=== PATIENT | male | born 1950 | race Caucasian/White ===

== ENCOUNTER 2016-08-08 16:58 | Inpatient (IN) | payer OTHER ==
[2016-08-08] MEDS ORDERED: SALINE LOCK IV FLUID XX ONE (17:10)
[2016-08-08] MEDS ORDERED: LEVAQUIN 500 MG/D5W 100 ML IV SCH (17:15)
[2016-08-08] MEDS: ALBUTEROL NEB INH SCH (20:00)
[2016-08-08] MEDS: LOVENOX SUBQ SCH (21:31)
[2016-08-08] MEDS: FLEXERIL PO SCH (21:31)
[2016-08-08] MEDS: PRAVACHOL PO SCH (21:32)
[2016-08-08] MEDS: GLUCOPHAGE XR PO SCH (21:32)
[2016-08-08] MEDS: COREG PO SCH (21:32)
[2016-08-08] MEDS: SOLU-MEDROL IV SCH (21:55)
[2016-08-08] MEDS: DOXYCYCLINE PO SCH (21:56)
[2016-08-08] MEDS: ROCEPHIN 1 GM/NS 50 ML IV SCH (21:56)
[2016-08-09] MEDS: ALBUTEROL NEB INH SCH ×4 (03:18→19:33)
[2016-08-09] MEDS: SOLU-MEDROL IV SCH ×3 (04:46→20:03)
[2016-08-09 05:01] LABS: ALLEN TEST YES; BLOOD TYPE ARTERIAL; DRAW SITE R RADIAL; METHB 1.4 % (0.0-1.5); O2(CT) 22.9 mL/dL (15.0-23.0); PO2(98.6) 63 mmHg (60-100); SAMPLE BLOOD; SAO2 93.3 % (95.0-100.0); THB 19.4 g/dL (11.5-17.4); pH(98.6) 7.31 (7.35-7.45)
[2016-08-09 05:09] LABS: PCO2(98.6) 80 mmHg (35-45)
[2016-08-09 05:10] LABS: MODALITY CANNULA
[2016-08-09 05:41] LABS: MANUAL DIFF NEEDED? NO
[2016-08-09 05:46] LABS: BASO% 0.3 % (0.0-0.8); HEMATOCRIT 58.5 % (42.0-52.0); HEMOGLOBIN 18.8 g/dL (14.0-18.0); IMM GRAN# 0.04 X1000 (0.0-0.04); IMM GRAN% 0.7 % (0.0-0.5); LYMPH# 0.79 X1000 (1.2-3.4); MCH 31.9 PG (27-31); MCHC 32.1 g/dL (33-37); MCV 99.3 FL (81-99); MONO# 0.07 X1000 (0.11-0.59); MONO% 1.2 % (1.7-9.3); MPV 9.3 FL (7.4-10.4); NEUT% 84.8 % (42.2-75.2); PLT 192 X1000 (130-400); RBC 5.89 XMIL (4.7-6.1)
[2016-08-09 08:20] LABS: AGAP 9; BUN 23 mg/dL (8-22); CALCIUM 8.8 mg/dL (8.8-10.2); CHLORIDE 90 mmol/L (98-107); COSMO 281; POTASSIUM 4.8 mmol/L (3.5-5.1); SODIUM 137 mmol/L (136-145); TCO2 38 mmol/L (25-35)
[2016-08-09] MEDS: COREG PO SCH ×2 (09:35→20:04)
[2016-08-09] MEDS: ZYLOPRIM PO SCH (09:35)
[2016-08-09] MEDS: NORVASC PO SCH (09:35)
[2016-08-09] MEDS: ULORIC PO SCH (09:36)
[2016-08-09] MEDS: DOXYCYCLINE PO SCH ×2 (09:36→20:03)
[2016-08-09] MEDS: CHANTIX PO SCH (09:37)
[2016-08-09] MEDS: GLUCOPHAGE XR PO SCH ×3 (09:47→20:03)
[2016-08-09] MEDS: ROCEPHIN 1 GM/NS 50 ML IV SCH (18:34)
[2016-08-09] MEDS: LOVENOX SUBQ SCH (20:03)
[2016-08-09] MEDS: FLEXERIL PO SCH (20:03)
[2016-08-09] MEDS: PRAVACHOL PO SCH (20:04)
--- NOTE | 2016-08-09 21:10 | CONSULTATION ---
DATE OF CONSULTATION: 08/09/2016 REQUESTING PHYSICIAN: Jose D Sotelo MD. REASON FOR CONSULTATION: Respiratory failure. HISTORY OF PRESENT ILLNESS: Mr. Thomas is a 65-year-old white male with a greater than 100 pack year history for tobacco, ongoing tobacco use, COPD, prior strokes, and obstructive sleep apnea who has had increasing difficulty with cough, wheezing and shortness of breath over the last week. Cough is productive of white sputum. He reports his dyspnea was so severe he could not walk across the room. He underwent a chest x-ray on 08/03 which revealed no evidence of acute disease. He was evaluated by Dr. Sotelo on 08/08/2016 and was admitted to the hospital with an acute exacerbation of COPD. PAST MEDICAL HISTORY: 1. COPD with ongoing tobacco use. 2. History of "two strokes" four years ago. 3. Diabetes mellitus. 4. Dyslipidemia. 5. Sleep apnea on CPAP machine. 6. Hypertension. SOCIAL HISTORY: Occasional alcohol use. Ongoing tobacco use. FAMILY HISTORY: Positive for hypertension and coronary artery disease. REVIEW OF SYSTEMS: As noted in the HPI, but is otherwise negative. PHYSICAL EXAMINATION: General: Reveals an obese white male who has the classic blue bloater appearance of a patient with COPD. Vital signs: Blood pressure 121/50, heart rate 77, respiration rate 22, oxygen saturation 95% on supplemental oxygen. HEENT: Pupils are equal reactive. Oropharynx is clear. Neck: Supple. Chest: Reveals scattered wheezing and rhonchi throughout all lung parekh. Cardiac: Distant heart sounds. Normal S1, normal S2. Abdomen: Obese and soft. Extremities: Reveal mild cyanosis. LABORATORIES/X-RAY: Chest x-ray 08/03/2016 reveals COPD, but no acute changes. Arterial blood gas this morning at 4:50 reveals a pH of 7.31, pCO2 of 80, PO2 of 63, with a carboxyhemoglobin of 8.3. White blood count 6.08. Hemoglobin 18.8. Hematocrit 58.5. Chemistries: Sodium 137, potassium 4.8, chloride 90, bicarbonate 38, BUN 23, creatinine 1. IMPRESSION: A 65-year-old with chronic obstructive pulmonary disease exacerbation, acute hypercapnic respiratory failure, chronic hypoxemic respiratory failure, secondary polycythemia, obstructive sleep apnea, ongoing tobacco use, and a coarse voice. RECOMMENDATIONS: 1. Agree with treatment of chronic obstructive pulmonary disease exacerbation as you are doing which includes bronchodilators, steroids, and antibiotics. 2. Smoking cessation was discussed at length. He has had difficulty with Chantix in the past. Other alternatives would include nicotine replacement therapy and perhaps hypnosis. 3. Recommend phlebotomy to bring hematocrit less than 50. 4. Recommend referral for an outpatient evaluation of his vocal cords given his coarse voice. 5. Long-term, weight loss would be of benefit. 6. Continue CPAP for sleep apnea. 7. Additional recommendations pending hospital course.
[2016-08-10] MEDS: ALBUTEROL NEB INH SCH ×4 (04:11→19:29)
[2016-08-10] MEDS: SOLU-MEDROL IV SCH (05:33)
[2016-08-10 06:14] LABS: HDL 17 mg/dL (35-55); LDL 50 mg/dL; TRIGLYCERIDES 198 mg/dL (39-160); VLDL 40 mg/dL
[2016-08-10 06:29] LABS: FREE T4 0.97 ng/dL (0.93-1.70)
[2016-08-10] MEDS: NORVASC PO SCH (09:33)
[2016-08-10] MEDS: COREG PO SCH ×2 (09:33→22:17)
[2016-08-10] MEDS: ZYLOPRIM PO SCH (09:33)
[2016-08-10] MEDS: DOXYCYCLINE PO SCH ×2 (09:33→22:17)
[2016-08-10] MEDS: CHANTIX PO SCH (09:33)
[2016-08-10] MEDS: ULORIC PO SCH (09:34)
[2016-08-10] MEDS: GLUCOPHAGE XR PO SCH ×2 (09:34→22:16)
[2016-08-10] MEDS: PREDNISONE PO SCH (15:09)
[2016-08-10] MEDS: ROCEPHIN 1 GM/NS 50 ML IV SCH (18:38)
[2016-08-10] MEDS: FLEXERIL PO SCH (22:16)
[2016-08-10] MEDS: PRAVACHOL PO SCH (22:17)
[2016-08-10] MEDS: LOVENOX SUBQ SCH (22:17)
[2016-08-11] MEDS: ALBUTEROL NEB INH SCH ×2 (04:05→08:01)
[2016-08-11] MEDS: PREDNISONE PO SCH ×2 (06:40→13:35)
[2016-08-11 09:34] VITALS: BP 123/59
[2016-08-11] MEDS: NORVASC PO SCH (09:38)
[2016-08-11] MEDS: ZYLOPRIM PO SCH (09:39)
[2016-08-11] MEDS: COREG PO SCH (09:39)
[2016-08-11] MEDS: ULORIC PO SCH (09:39)
[2016-08-11] MEDS: DOXYCYCLINE PO SCH (09:39)
[2016-08-11] MEDS: CHANTIX PO SCH (09:39)
[2016-08-11] MEDS: GLUCOPHAGE XR PO SCH (09:39)
--- NOTE | 2016-08-12 09:30 | DISCHARGE SUMMARY ---
ADMISSION DATE: 08/08/2016 DISCHARGE DATE: 08/11/2016 FINAL DIAGNOSES: 1. Acute exacerbation of chronic obstructive pulmonary disease. 2. Chronic hypercapnic respiratory failure with impending acute respiratory failure. 3. Chronic hypoxemic respiratory failure. 4. Secondary polycythemia. 5. Obstructive sleep apnea. 6. Ongoing tobacco use. 7. Persistent hoarseness. 8. Type 2 diabetes mellitus. 9. Dyslipidemia. 10. Essential hypertension. 11. Cerebrovascular disease with history of previous strokes. 12. Abnormal thyroid function tests. PRESENT ILLNESS: Mr. Thomas is a 65-year-old, disabled white male with greater than 100 pack year history of tobacco use, who presented to his nurse practitioner on followup with failure to improve on outpatient management with exacerbation of COPD. He was visibly cyanotic with O2 saturation in the low 80s. He had also been only partially compliant, and not filled the prescription for nebulizer treatments. PHYSICAL EXAMINATION: General: Revealed an obese gentleman with fairly unremarkable vital signs. O2 saturation was 90-92% on 2 L of nasal oxygen. Neck: Supple but quite short and dunne. Chest exam: Revealed very distant breath sounds with scattered, soft wheezing and rhonchi in all lung parekh. Heart: Sounds were distant, but no murmurs were heard. Abdomen: Obese, soft, and nontender. Extremities: Mild cyanosis. Please see Susy Snyder's excellent EHR note for further details. DATABASE: Chemistry profile remarkable for CO2 of 38. BUN 23, creatinine 1.0, glucose 155. White blood count was 6000. Hemoglobin 18.8, hematocrit 58.5%. Blood gas: pH 7.31, pCO2 of 80, pO2 of 63 on 2 L of nasal cannula. Carboxyhemoglobin was 8.3. HOSPITAL COURSE: He was treated with low-flow nasal O2, limited to 2 L/minute for fear of worsening his hypercapnia. His O2 saturation was acceptable, but slightly low on this amount of oxygen. He was treated with intravenous Solu-Medrol, intravenous Rocephin and oral doxycycline. He was given around the clock half-strength albuterol nebulizer treatments. He was seen in consultation by Dr. Gibran Shetty, assistant office manager, who agreed with current management. His hoarse voice was noted and thyroid function tests were obtained for possible hypothyroidism. These were somewhat confusing with a low TSH of 0.19, but a low normal free T4 of 0.97. I have consulted [facility] endocrinology by the [facility] and they felt he was most likely euthyroid, but suggested repeating these thyroid function tests next week. If his free T4 is low, then he probably needs referral to an business information manager for further evaluation. At the time of discharge, his total T3 and free T3 results are pending. With the above treatment, his dyspnea on exertion improved significantly. He was able to walk to and from the bathroom without difficulty. Room air O2 saturation remained unacceptably low, approximately 81-84%. Thus, he is prescribed 2 L of nasal cannula oxygen at home. He is also prescribed a home nebulizer. DISCHARGE MEDICATIONS: DuoNeb one 3 or 4 times a day. Allopurinol 300 mg daily, amlodipine 7.5 mg daily, carvedilol 25 mg twice a day. Cyclobenzaprine 10 mg at bedtime, doxycycline 100 mg daily for 7 additional days. Uloric 80 mg daily. Metformin XR 500 mg twice a day. Pravastatin 40 mg at bedtime, prednisone 20 mg twice a day for 3 days and then once a day for 7 days. Chantix 0.5 mg b.i.d. PLAN: He is to return to see his nurse practitioner in 1 week. He will need an ENT referral for sports medicine. Referral to Dr. Houser, his sleep specialist for CPAP adjustment and tune up and repeat thyroid function tests as listed above. Due to his polycythemia, he was phlebotomized 1 unit, and Dr. Shetty recommended weekly phlebotomies until his hematocrit is less than or equal to 50%. This will probably take 2-3 more phlebotomies.
== END 2016-08-11 15:14 | disposition home health service (06) | DRG 191 ==
LOC: DIRADM 16:58 → 4N 17:23
PROVIDERS: ADMIT Internal Medicine; ATTEND Internal Medicine
PROC: 059Y3ZZ Drainage of Upper Vein, Percutaneous Approach (ICD-10-PCS; principal; 2016-08-10)
DX: J44.1 Chronic obstructive pulmonary disease with (acute) exacerbation (principal); J96.11 Chronic respiratory failure with hypoxia; J96.12 Chronic respiratory failure with hypercapnia; I10 Essential (primary) hypertension; F17.210 Nicotine dependence, cigarettes, uncomplicated; E78.5 Hyperlipidemia, unspecified; I25.10 Atherosclerotic heart disease of native coronary artery without angina pectoris; E11.9 Type 2 diabetes mellitus without complications; M10.9 Gout, unspecified; G31.84 Mild cognitive impairment of uncertain or unknown etiology; G47.33 Obstructive sleep apnea (adult) (pediatric); E66.9 Obesity, unspecified; D75.1 Secondary polycythemia; R49.0 Dysphonia; R94.6 Abnormal results of thyroid function studies; Z68.31 Body mass index [BMI] 31.0-31.9, adult; Z82.49 Family history of ischemic heart disease and other diseases of the circulatory system; Z79.84 Long term (current) use of oral hypoglycemic drugs; Z79.899 Other long term (current) drug therapy; Z86.73 Personal history of transient ischemic attack (TIA), and cerebral infarction without residual deficits
CPT/HCPCS: 80048; 80061; 82805; 82948; 84439; 84443; 84480; 84481; 85025; 94640; 94761; 94799; 99195; J0696; J1650; J2930; J7512

== ENCOUNTER 2016-11-27 16:20 | Inpatient (IN) ==
[2016-11-27] MEDS ORDERED: SALINE LOCK IV FLUID XX ONE (17:07)
[2016-11-27] MEDS ORDERED: TYLENOL PO PRN (17:07)
[2016-11-27] MEDS: ROCEPHIN 1 GM/NS 1 GM/50 ML IVPB IV SCH (17:40)
[2016-11-27] MEDS: SOLU-MEDROL IV SCH (17:41)
[2016-11-27 17:42] LABS: MANUAL DIFF NEEDED? NO
[2016-11-27 17:45] LABS: BASO% 0.4 % (0.0-0.8); EOS# 0.19 X1000 (0.0-0.7); IMM GRAN# 0.02 X1000 (0.0-0.04); IMM GRAN% 0.2 % (0.0-0.5); LYMPH# 2.39 X1000 (1.2-3.4); LYMPH% 24.8 % (20.5-51.1); MCH 29.8 PG (27-31); MCV 93.1 FL (81-99); MONO# 0.92 X1000 (0.11-0.59); MONO% 9.6 % (1.7-9.3); MPV 9.6 FL (7.4-10.4); PLT 202 X1000 (130-400); RBC 5.37 XMIL (4.7-6.1)
[2016-11-27 18:04] LABS: AGAP 14; ALBUMIN 3.4 g/dL (3.5-5.0); ALKALINE PHOSPHATASE 84 U/L (32-122); BUN 13 mg/dL (8-22); CALCIUM 8.4 mg/dL (8.8-10.2); CHLORIDE 98 mmol/L (98-107); COSMO 290; GOT 13 U/L (10-34); GPT 9 U/L (10-44); POTASSIUM 3.6 mmol/L (3.5-5.1); SODIUM 145 mmol/L (136-145); TCO2 33 mmol/L (25-35); TOTAL BILIRUBIN 0.24 mg/dL (0.20-1.00); TOTAL PROTEIN 6.4 g/dL (6.3-8.3)
[2016-11-27] MEDS ORDERED: NICOTINE GUM BUCCAL PRN (18:18)
[2016-11-27] MEDS: DUONEB (A & A) INH SCH (19:00)
[2016-11-27 19:22] LABS: ALLEN TEST YES; BE 9.5 mmoll (-3.0-3.0); BLOOD TYPE ARTERIAL; DRAW SITE R RADIAL; METHB 1.4 % (0.0-1.5); MODALITY CANNULA; O2(CT) 18.7 mL/dL (15.0-23.0); PO2(98.6) 52 mmHg (60-100); SAMPLE BLOOD; SAO2 93.1 % (95.0-100.0); THB 15.9 g/dL (11.5-17.4); pH(98.6) 7.34 (7.35-7.45)
[2016-11-27 19:25] LABS: PCO2(98.6) 72 mmHg (35-45)
[2016-11-27] MEDS: LOVENOX SUBQ SCH (20:30)
[2016-11-27] MEDS: NEURONTIN PO SCH (20:30)
[2016-11-27] MEDS: PRAVACHOL PO SCH (20:30)
[2016-11-27] MEDS: COREG PO SCH (20:30)
[2016-11-27] MEDS ORDERED: PRAVACHOL PO SCH (21:00)
[2016-11-27] MEDS ORDERED: FLEXERIL PO SCH (21:00)
[2016-11-28] MEDS: SOLU-MEDROL IV SCH ×3 (01:29→17:35)
[2016-11-28] MEDS: DUONEB (A & A) INH SCH ×5 (03:15→19:16)
[2016-11-28] MEDS: PROTONIX PO SCH ×2 (05:52→06:50)
[2016-11-28 07:10] LABS: FREE T4 1.09 ng/dL (0.93-1.70)
--- NOTE | 2016-11-28 08:00 | Diag Imaging Result Document ---
PROCEDURE NAME: CHEST-2 VIEWS - 11/27/2016 PA AND LATERAL RADIOGRAPH OF THE CHEST: COMPARISON: 08/03/2016. FINDINGS: There are stable COPD changes. There is, perhaps, mild opacity at the left lower lung zone somewhat obscuring the left heart border. Developing airspace consolidation should be considered. Followup is recommended. There is no definite pleural fluid collection. Cardiac silhouette is borderline prominent but stable. IMPRESSION: 1. Vague opacity projecting over the left lower lung zone as described. Follow-up chest radiograph is recommended. 2. Not mentioned above, the central vasculature also appears to be somewhat prominent suggesting a component of pulmonary venous congestion.
[2016-11-28] MEDS: NEURONTIN PO SCH ×2 (10:10→20:56)
[2016-11-28] MEDS: ZYLOPRIM PO SCH (10:10)
[2016-11-28] MEDS: COREG PO SCH ×2 (10:11→20:56)
[2016-11-28] MEDS: ULORIC PO SCH (10:11)
[2016-11-28] MEDS: PRINIVIL PO SCH (10:11)
[2016-11-28] MEDS: NORVASC PO SCH (10:11)
[2016-11-28] MEDS: GLUCOPHAGE XR PO SCH (17:34)
[2016-11-28] MEDS: ROCEPHIN 1 GM/NS 1 GM/50 ML IVPB IV SCH (17:34)
[2016-11-28] MEDS: PRAVACHOL PO SCH (20:55)
[2016-11-28] MEDS: LOVENOX SUBQ SCH (20:56)
[2016-11-29] MEDS: SOLU-MEDROL IV SCH (01:31)
[2016-11-29] MEDS: DUONEB (A & A) INH SCH ×4 (02:13→15:37)
[2016-11-29] MEDS: PROTONIX PO SCH ×2 (05:34→06:12)
[2016-11-29] MEDS ORDERED: SYNTHROID PO ONE (08:51)
[2016-11-29] MEDS ORDERED: DOXYCYCLINE PO SCH (09:00)
[2016-11-29] MEDS: COREG PO SCH (09:13)
[2016-11-29] MEDS: NEURONTIN PO SCH (09:14)
[2016-11-29] MEDS: NORVASC PO SCH (09:14)
[2016-11-29] MEDS: PRINIVIL PO SCH (09:14)
[2016-11-29] MEDS: GLUCOPHAGE XR PO SCH ×2 (09:14→17:55)
[2016-11-29] MEDS: ULORIC PO SCH (09:15)
[2016-11-29] MEDS: ZYLOPRIM PO SCH (09:15)
[2016-11-29 15:45] VITALS: BP 160/79
[2016-11-30] MEDS ORDERED: PREDNISONE PO SCH (06:00)
[2016-11-30] MEDS ORDERED: SYNTHROID PO SCH (07:00)
--- NOTE | 2016-11-30 16:02 | DISCHARGE SUMMARY ---
ADMISSION DATE: 11/27/2016 DISCHARGE DATE: 11/29/2016 FINAL DIAGNOSES: 1. Chronic obstructive pulmonary disease with acute exacerbation. 2. Chronic respiratory failure with CO2 retention. 3. Persistent hypoxemia. 4. Obstructive sleep apnea. 5. Essential hypertension. 6. Secondary hypothyroidism. 7. Type 2 diabetes mellitus. 8. Gout. 9. Hyperlipidemia. 10. History of coronary artery disease. PRESENT ILLNESS: Mr. Thomas is a 66-year-old gentleman, who presented to his nurse practitioner, Susy Grubbs, with a 3-day history of progressive shortness of breath, cough productive of tarango- green sputum, wheezing and some chills. He continues to smoke and has been using his DuoNeb treatments at home without relief. PHYSICAL EXAMINATION: General: Revealed an obese plethoric gentleman, who was alert and talkative. Lung Sounds: Remarkable for diffuse moderately tight wheezing heard throughout both lung parekh. His oxygen saturation on room air was 74%. Abdomen: Soft, obese and nontender. Extremities: He had no pedal edema. DATABASE: Electrolytes on admission were normal. Glucose 128, BUN 13, creatinine 1.0. Albumin 3.4. TSH 0.25, free T4 of 1.09. HOSPITAL COURSE: He was admitted to the medical floor, treated with low-flow nasal oxygen, intravenous Solu-Medrol and intravenous antibiotics. Blood gas on 2 L was pH 7.34, pCO2 72, PO2 52, carboxyhemoglobin 8.6. With the above treatment, he improved fairly rapidly. His glucose was elevated on the steroids, and this morning this was stopped and changed to oral prednisone. He has maintained his improvement throughout the day today and is walking fairly brisk in the halls with minimal dyspnea, and I feel he can go home. His room air O2 saturation is still 80% to 84%, and I feel he will need home oxygen. He was hospitalized in August for a similar presentation. At that time, he went home without oxygen. Since then, he has had therapeutic phlebotomy and maintained an acceptable hematocrit of 50%. He has been taking his Synthroid since then, but has not kept appointments at [facility] for secondary, presumably pituitary hypothyroidism. I elected to increase his levothyroxine to 75 mcg daily at discharge. He brought in his home CPAP machine which is new and should be some remarkable improvement. He tolerated not smoking in the hospital surprisingly well, and intends to lead a new life at home without cigarettes, and requested some anxiety medication. His blood pressure was elevated on admission and improved as the shortness of breath improved. He is discharged in improved condition. He is to return to see Eusebio Romie, his nurse practitioner, next week. DISCHARGE MEDICATIONS: 1. Doxycycline 100 mg once daily for 7 days. 2. Levothyroxine 75 mcg daily. 3. Prednisone 20 mg with breakfast and lunch twice daily for 7 days. 4. Lisinopril 20 mg daily. 5. Nicotine gum over the counter as needed. 6. Uloric 80 mg daily. 7. Alprazolam 0.25 mg q. 8 hours p.r.n. for anxiety #30 no refills. 8. Gabapentin 300 mg twice a day. 9. Pravastatin 40 mg at bedtime. 10. Metformin XR 500 mg twice a day. 11. Carvedilol 25 mg twice a day. 12. Amlodipine 5 mg 1-1/2 tablets daily. 13. DuoNeb 3-4 times daily as needed. 14. Spiriva inhaler 1 inhalation daily. 15. [place] 7.5 twice a day as needed. cc: Jose D Sotelo MD
== END 2016-11-29 18:45 | disposition home or self-care (01) ==
LOC: DIRADM 16:20 → 4N 16:59
PROVIDERS: ADMIT Internal Medicine; ATTEND Internal Medicine